=== PATIENT | male | born 1965 | race Caucasian/White ===

== ENCOUNTER 2021-05-07 19:23 | Emergency (ER) | payer MEDICAID, OTHER ==
[~2021-05-07] VITALS: Ht 167.6 cm; Wt 77.1 kg
[2021-05-07 19:42] VITALS: BP_SYST 148
[2021-05-07] MEDS ORDERED: AUG875 PO (20:40)
[2021-05-07] MEDS ORDERED: NAPR-690 PO (20:40)
[2021-05-07] MEDS ORDERED: IBUPROFEN 600 MG TABLET PO ONE (20:45)
== END 2021-05-07 21:05 | disposition home or self-care (01) ==
LOC: SED 19:23
DX: H66.93 Otitis media, unspecified, bilateral (principal); Z79.899 Other long term (current) drug therapy
CPT/HCPCS: 99283